=== PATIENT | male | born 1995 | race Caucasian/White ===

== ENCOUNTER 2024-04-03 16:06 | Emergency (ER) | payer SELFPAY ==
[2024-04-03 16:27] VITALS: BP 119/73; PULSE 92; RESP 18; TEMP 99.5; BMI 16.9
[2024-04-03] MEDS ORDERED: ACETAMINOPHEN 1000 MG/100 ML BAG IVPB ONE (16:31)
[2024-04-03] MEDS ORDERED: SODIUM CHLORIDE 0.9% 500 ML INFUS.BAG IV ONE (16:31)
[2024-04-03] MEDS ORDERED: ONDANSETRON 4 MG/2 ML VIAL IVPUSH ONE (16:31)
== END 2024-04-03 16:55 | disposition left against medical advice (07) ==
LOC: JER 16:06
DX: R11.2 Nausea with vomiting, unspecified (principal); R19.7 Diarrhea, unspecified; R10.9 Unspecified abdominal pain; R68.83 Chills (without fever)
CPT/HCPCS: 99281-25